=== PATIENT | male | born 1975 | race Caucasian/White ===

== ENCOUNTER 2018-01-02 17:52 | Inpatient (IN) | payer MEDICAID ==
[~2018-01-02] VITALS: Ht 165.1 cm; Wt 103.2 kg
[2018-01-02] MEDS ORDERED: METF-960 PO (18:05)
[2018-01-02 18:15] LABS: GLUCOSE,POINT OF CARE 211 MG/DL (70-110)
[2018-01-02 18:31] LABS: BASOPHILS % (AUTO) 0.4 % (0.0-2.0); EOSINOPHILS % (AUTO) 0.9 % (1.0-6.0); HEMATOCRIT 36.1 % (41-53); HEMOGLOBIN 12.3 g/dL (13.5-17.5); LYMPHOCYTES # (AUTO) 2.7 K/uL (1.0-4.8); LYMPHOCYTES % (AUTO) 21.4 % (22.0-44.0); MEAN CORPUSCULAR HEMOGLOBIN 30.4 pg (26.0-34.0); MEAN CORPUSCULAR HGB CONC 34.2 G/dL (31.0-37.0); MEAN CORPUSCULAR VOLUME 89 fL (80-100); MONOCYTES % (AUTO) 8.3 % (2.0-9.0); NEUTROPHILS # (AUTO) 8.6 K/uL (1.8-7.7); PLATELET COUNT (AUTO) 217 K/uL (150-450); RED BLOOD CELL COUNT(AUTO) 4.06 MIL/uL (4.50-5.90); RED CELL DISTRIBUTION WIDTH 12.5 % (11.5-14.5)
[2018-01-02 18:42] LABS: CALCIUM, TOTAL 8.9 mg/dL (8.8-10.5); CREATININE 2.14 mg/dL (0.60-1.30); POTASSIUM 4.1 mmol/L (3.5-5.1)
[2018-01-02] MEDS ORDERED: ONDANSETRON HCL 4 MG/2 ML VIAL IVP ONE (18:45)
[2018-01-02] MEDS ORDERED: SODIUM CHLORIDE 0.9% 1,000 ML IV ONE ×3 (18:45→20:30)
[2018-01-02] MEDS ORDERED: KETOROLAC TROMETHAMINE 30 MG/ML VIAL IVP ONE (18:45)
[2018-01-02 18:47] LABS: ALBUMIN 3.1 g/dL (3.4-5.0); BILIRUBIN,TOTAL 0.5 mg/dL (0.1-1.0); TOTAL PROTEIN, SERUM 7.8 g/dL (6.4-8.2)
[2018-01-02] MEDS ORDERED: MORPHINE SULFATE 4 MG/ML SYRINGE IVP ONE (19:30)
[2018-01-02] MEDS ORDERED: ACETAMINOPHEN 1000 MG/ISO-OSM 100 ML IV ONE (19:30)
[2018-01-02] MEDS ORDERED: CefTRIAXone SODIUM 1 GM in DEXTROSE 5%-WATER 10 ML IV ONE (19:30)
[2018-01-02 20:26] LABS: APPEARANCE,URINE CLEAR (CLEAR); BILIRUBIN,URINE NEGATIVE (NEGATIVE); GLUCOSE, URINE (UA) 500 mg/dL (NEGATIVE); KETONES,URINE NEGATIVE (NEGATIVE); LEUKOCYTE ESTERASE ,URINE NEGATIVE (NEGATIVE); NITRATE,URINE NEGATIVE (NEGATIVE); OCCULT BLOOD,URINE NEGATIVE (NEGATIVE); PH,URINE 5.5 (5.0-8.0); PROTEIN,URINE NEGATIVE (NEGATIVE); UROBILINOGEN,URINE 0.2 mg/dL (<=1.0)
[2018-01-02] MEDS ORDERED: HYDROCODONE/ACETAMINOPHEN 5-325 MG TABLET PO PRN (20:30)
[2018-01-02] MEDS ORDERED: ONDANSETRON HCL 4 MG/2 ML VIAL IVP PRN ×2 (20:30→21:30)
[2018-01-02] MEDS ORDERED: MORPHINE SULFATE 4 MG/ML SYRINGE IVP PRN (20:30)
[2018-01-02] MEDS ORDERED: ACETAMINOPHEN 325 MG TABLET PO PRN (20:30)
[2018-01-02 20:45] LABS: BACTERIA,URINE None Seen /HPF (None Seen); RBC,URINE None Seen /HPF (0-2); SQUAMOUS EPITHELIAL CELL,UR Rare /LPF (None Seen); WBC,URINE 0-2 /HPF (0-5)
[2018-01-02 21:12] VITALS: BP 149/91
[2018-01-02] MEDS ORDERED: 0.9% SODIUM CHLORIDE 10 ML SYRINGE IVP PRN (21:30)
[2018-01-02] MEDS ORDERED: PNEUMOCOCCAL VACCINE POLYVALENT 0.5 ML VIAL [PPSV23] IM ONE (21:30)
[2018-01-02] MEDS ORDERED: DEXTROSE 50%-WATER 25 GM/50 ML SYRINGE IVP PRN (21:30)
[2018-01-02] MEDS ORDERED: OxyCODONE HCL/ACETAMINOPHEN 5-325 MG TABLET PO PRN (21:30)
[2018-01-02] MEDS: DOCUSATE SODIUM 100 MG CAPSULE PO SCH (21:54)
[2018-01-02] MEDS: INSULIN LISPRO 100 UNITS/ML SQ PRN (22:15)
[2018-01-02 23:16] VITALS: BP 149/94
[2018-01-02 23:49] LABS: GLUCOMETER DEV NAME(LOC) 6N 2D; GLUCOSE,POINT OF CARE 145 MG/DL (70-110)
[2018-01-03] MEDS ORDERED: HydrALAZINE HCL 10 MG TABLET PO ONE (01:00)
[2018-01-03] MEDS ORDERED: LISI-661 PO (01:32)
[2018-01-03] MEDS ORDERED: LOVA20 PO (01:32)
[2018-01-03] MEDS ORDERED: GLIP5 PO (01:32)
[2018-01-03 04:50] VITALS: BP 138/95
[2018-01-03] MEDS: OxyCODONE HCL/ACETAMINOPHEN 5-325 MG TABLET PO PRN ×2 (05:32→19:50)
[2018-01-03 05:36] LABS: BASOPHILS % (AUTO) 0.4 % (0.0-2.0); EOSINOPHILS % (AUTO) 1.6 % (1.0-6.0); HEMATOCRIT 32.9 % (41-53); HEMOGLOBIN 11.3 g/dL (13.5-17.5); LYMPHOCYTES # (AUTO) 2.4 K/uL (1.0-4.8); LYMPHOCYTES % (AUTO) 23.3 % (22.0-44.0); MEAN CORPUSCULAR HEMOGLOBIN 31.2 pg (26.0-34.0); MEAN CORPUSCULAR HGB CONC 34.3 G/dL (31.0-37.0); MEAN CORPUSCULAR VOLUME 91 fL (80-100); NEUTROPHILS # (AUTO) 6.7 K/uL (1.8-7.7); NEUTROPHILS % (AUTO) 64.7 % (40.0-70.0); PLATELET COUNT (AUTO) 195 K/uL (150-450); RED BLOOD CELL COUNT(AUTO) 3.62 MIL/uL (4.50-5.90); RED CELL DISTRIBUTION WIDTH 12.4 % (11.5-14.5)
[2018-01-03] MEDS: INSULIN LISPRO 100 UNITS/ML SQ PRN ×3 (05:37→20:20)
[2018-01-03 05:44] LABS: CALCIUM, TOTAL 7.5 mg/dL (8.8-10.5); CREATININE 1.87 mg/dL (0.60-1.30); POTASSIUM 3.9 mmol/L (3.5-5.1)
[2018-01-03 08:00] VITALS: BP 148/93
[2018-01-03 08:29] LABS: GLUCOMETER DEV NAME(LOC) 6N 2D; GLUCOSE,POINT OF CARE 153 MG/DL (70-110)
[2018-01-03] MEDS: PANTOPRAZOLE SODIUM 40 MG/VIAL IVP SCH (08:47)
[2018-01-03] MEDS: LISINOPRIL 10 MG TABLET PO SCH (08:47)
[2018-01-03] MEDS: DOCUSATE SODIUM 100 MG CAPSULE PO SCH ×2 (08:47→19:51)
[2018-01-03 11:27] VITALS: BP 148/93
[2018-01-03] MEDS: SODIUM CHLORIDE 0.9% 1,000 ML IV SCH (11:57)
[2018-01-03 15:30] VITALS: BP 155/99
[2018-01-03 16:44] LABS: GLUCOMETER DEV NAME(LOC) PV 4E2; GLUCOSE,POINT OF CARE 118 MG/DL (70-110)
[2018-01-03] MEDS: LOVASTATIN 20 MG TABLET PO SCH (19:51)
[2018-01-03 20:00] VITALS: BP 161/92
[2018-01-03 20:42] VITALS: BP 149/90
[2018-01-03 22:19] LABS: GLUCOMETER DEV NAME(LOC) PV 4E2; GLUCOSE,POINT OF CARE 189 MG/DL (70-110)
[2018-01-03 22:19] LABS: GLUCOMETER DEV NAME(LOC) PV 4E2; GLUCOSE,POINT OF CARE 170 MG/DL (70-110)
[2018-01-04] VITALS (7 sets, daily range): BP systolic 137–149; BP diastolic 80–89
[2018-01-04] MEDS: SODIUM CHLORIDE 0.9% 1,000 ML IV SCH ×2 (02:09→20:32)
[2018-01-04 06:10] LABS: GLUCOMETER DEV NAME(LOC) PV 4E2; GLUCOSE,POINT OF CARE 168 MG/DL (70-110)
[2018-01-04] MEDS: PANTOPRAZOLE SODIUM 40 MG/VIAL IVP SCH (08:35)
[2018-01-04] MEDS: LISINOPRIL 10 MG TABLET PO SCH (08:35)
[2018-01-04] MEDS: DOCUSATE SODIUM 100 MG CAPSULE PO SCH ×2 (09:00→20:22)
[2018-01-04 12:39] LABS: GLUCOMETER DEV NAME(LOC) PV 4E2; GLUCOSE,POINT OF CARE 126 MG/DL (70-110)
[2018-01-04] MEDS ORDERED: IOHEXOL 240 MG/ML 20 ML VIAL ONE (14:11)
[2018-01-04] MEDS ORDERED: SODIUM CL IRRIG SOLN BAG 3,000 ML IRRIG ONE (14:13)
[2018-01-04] MEDS ORDERED: SODIUM CHLORIDE 0.9% 1,000 ML IV ONE ×2 (15:07→15:15)
[2018-01-04] MEDS ORDERED: CefTRIAXone 1 GM/DEXTROSE 50 ML IV ONE (16:00)
[2018-01-04] MEDS ORDERED: ONDANSETRON HCL 4 MG/2 ML VIAL IVP PRN (16:45)
[2018-01-04] MEDS ORDERED: HYDROmorphone 2 MG/ML SYRINGE IVP PRN ×3 (16:45)
[2018-01-04] MEDS ORDERED: GUM MASTIC/STORAX/MSAL/ALCOHOL LIQUID 0.67 ML VIAL TP ONE (16:46)
[2018-01-04] MEDS: OxyCODONE HCL/ACETAMINOPHEN 5-325 MG TABLET PO PRN (18:49)
[2018-01-04] MEDS: LOVASTATIN 20 MG TABLET PO SCH (20:23)
[2018-01-04] MEDS: INSULIN LISPRO 100 UNITS/ML SQ PRN (20:34)
[2018-01-04 21:38] LABS: GLUCOMETER DEV NAME(LOC) PV 4E2; GLUCOSE,POINT OF CARE 248 MG/DL (70-110)
[2018-01-04 21:38] LABS: GLUCOMETER DEV NAME(LOC) PV 4E2; GLUCOSE,POINT OF CARE 122 MG/DL (70-110)
[2018-01-05 03:30] VITALS: BP 132/80
[2018-01-05 05:29] LABS: GLUCOMETER DEV NAME(LOC) PV 4E2; GLUCOSE,POINT OF CARE 119 MG/DL (70-110)
[2018-01-05] MEDS ORDERED: SUCCINYLCHOLINE CHLORIDE 20 MG/ML 10 ML VIAL IVP ONE (05:55)
[2018-01-05] MEDS ORDERED: FentaNYL CITRATE-PF 100 MCG/2 ML VIAL IVP ONE (05:55)
[2018-01-05] MEDS ORDERED: MIDAZOLAM HCL 2 MG/2 ML VIAL IVP ONE (05:55)
[2018-01-05] MEDS ORDERED: LIDOCAINE/PF 2% 5 ML VIAL IM ONE (05:55)
[2018-01-05 08:00] VITALS: BP 143/95
[2018-01-05] MEDS: LISINOPRIL 10 MG TABLET PO SCH (09:40)
[2018-01-05] MEDS: DOCUSATE SODIUM 100 MG CAPSULE PO SCH (09:41)
[2018-01-05] MEDS: PANTOPRAZOLE SODIUM 40 MG/VIAL IVP SCH (09:41)
[2018-01-05 12:00] VITALS: BP 154/99
[2018-01-05 15:20] LABS: GLUCOMETER DEV NAME(LOC) PV 4E2; GLUCOSE,POINT OF CARE 136 MG/DL (70-110)
[2018-01-05] MEDS ORDERED: TRAM50TA4 PO (15:43)
[2018-01-05 16:00] VITALS: BP 143/91
== END 2018-01-05 16:15 | disposition home or self-care (01) | DRG 710 ==
LOC: EMS 17:55 → 6N 20:00 → 4E 01-03 07:54
PROVIDERS: ADMIT Internal Medicine; ATTEND Internal Medicine
PROC: 0TC78ZZ Extirpation of Matter from Left Ureter, Via Natural or Artificial Opening Endoscopic (ICD-10-PCS; 2018-01-04)
PROC: BT1F1ZZ Fluoroscopy of Left Kidney, Ureter and Bladder using Low Osmolar Contrast (ICD-10-PCS; 2018-01-04)
PROC: 0T778ZZ Dilation of Left Ureter, Via Natural or Artificial Opening Endoscopic (ICD-10-PCS; principal; 2018-01-04 16:00)
DX: A41.9 Sepsis, unspecified organism (principal); N17.9 Acute kidney failure, unspecified; N39.0 Urinary tract infection, site not specified; E11.9 Type 2 diabetes mellitus without complications; E66.3 Overweight; N13.2 Hydronephrosis with renal and ureteral calculous obstruction; Z28.21 Immunization not carried out because of patient refusal; Z68.37 Body mass index [BMI] 37.0-37.9, adult
CPT/HCPCS: 74176; 87081; 87086; 88300; 96365; 96368; 96375; C9113; G0378; J0131; J0330; J0696; J1885; J2250; J2270; J2405; J3010; J3490; J7030; J7060; Q9966

== ENCOUNTER 2021-03-16 08:00 | Emergency (ER) | payer MEDICAID ==
[~2021-03-16] VITALS: Ht 167.6 cm; Wt 86.4 kg
[~2021-03-16 08:00] MED LIST: GLIP5 PO; LISI-893 PO; LOVA20TA73 PO; METF-1211 PO; TRAM50TA4 PO
[2021-03-16 11:03] VITALS: BP 159/106
[2021-03-16] MEDS ORDERED: IBUPROFEN 600 MG TABLET PO ONE (11:15)
[2021-03-16] MEDS ORDERED: LISI-894 PO (11:18)
[2021-03-16] MEDS ORDERED: EMPA10TA PO (11:18)
[2021-03-16] MEDS ORDERED: INSLAN SQ (11:18)
== END 2021-03-16 13:48 | disposition home or self-care (01) ==
LOC: EMS 08:12
DX: R07.81 Pleurodynia (principal); E11.9 Type 2 diabetes mellitus without complications; E78.00 Pure hypercholesterolemia, unspecified; I10 Essential (primary) hypertension; Z79.4 Long term (current) use of insulin; Z79.84 Long term (current) use of oral hypoglycemic drugs
CPT/HCPCS: 71045; 71046; 82962; 99283